=== PATIENT | female | born 1990 | race Caucasian/White ===

== ENCOUNTER 2018-11-30 18:53 | Emergency (ER) | payer SELFPAY ==
[~2018-11-30] VITALS: Ht 165.1 cm; Wt 80.0 kg
[2018-11-30 19:12] VITALS: Ht 165.1 cm; Wt 80.0 kg
[2018-11-30] MEDS ORDERED: LIDOCAINE/MYLANTA 40 ML BTL PO STA (19:39)
[2018-11-30] MEDS ORDERED: MAG-19 PO (21:51)
[2018-11-30] MEDS ORDERED: SIME80TA53 PO (21:51)
[2018-11-30 22:06] VITALS: BP 116/75; PULSE 76; RESP 18
--- NOTE | 2018-12-01 01:51 | ERD ---
ER Documentation Chief Complaint Chief Complaint upper abd pain x 3 days, states 9 weeks , denies vb HPI 28-year-old female presents for epigastric abdominal pain times 3 days. She is currently 9 weeks . She states that the pain is better with eating, worse with not eating. Pain is noted to be 5 out of 10, described as sharp and dull. She took Tylenol at home without relief. States that she hears a lot of bubbling in her stomach. She denies vaginal bleeding. She denies pain radiation. She denies fevers or chills. Denies chest pain or shortness of breath. No nausea or vomiting noted, no diarrhea. ROS All systems reviewed and are negative except as per history of present illness. Medications Home Meds Active Scripts Magaldrate/Simethicone* (Mylanta*) 355 Ml Susp, 30 ML PO QID PRN for GASTROINTESTINAL UPSET, #1 BOTTLE Prov:LUIMARCUS 11/30/18 Discontinued Scripts Simethicone (GAS RELIEF) 80 Mg Tab.chew, 80 MG PO QID PRN for prn, #30 TAB.CHEW Prov:MARCUS LUI DO 11/30/18 Allergies Allergies: Coded Allergies: No Known Drug Allergy (Verified Allergy, Unknown, 11/30/18) PMhx/Soc Medical and Surgical Hx: pt denies Medical Hx, pt denies Surgical Hx History of Surgery: No Anesthesia Reaction: No Hx Neurological Disorder: No Hx Respiratory Disorders: No Hx Cardiac Disorders: No Hx Psychiatric Problems: No Hx Miscellaneous Medical Probl: No Hx Alcohol Use: No Hx Substance Use: No Hx Tobacco Use: No Smoking Status: Never smoker Physical Exam Vitals Vital Signs Date Temp Pulse Resp B/P (MAP) Pulse Ox O2 O2 Flow FiO2 Time Delivery Rate 11/30/18 98.3 76 18 116/75 99 Room Air 22:06 (89) 11/30/18 98.5 82 18 120/68 99 19:12 (85) Physical Exam Const: No acute distress Neck: Full range of motion. No meningismus. Resp: Clear to auscultation bilaterally Cardio: Regular rate and rhythm, no murmurs Abd: Soft, non distended. Normal bowel sounds, mild epigastric tenderness to palpation, no Gallagher sign, no McBurney point tenderness, no rebound or guarding noted. Skin: No petechiae or rashes Back: No midline or flank tenderness Ext: No cyanosis, or edema Neur: Awake and alert Psych: Normal Mood and Affect Result Diagram: 11/30/18194411/30/181944 Results 24 hrs Laboratory Tests Test 11/30/18 19:45 11/30/18 19:50 White Blood Count 9.6 10^3/ul Red Blood Count 4.17 10^6/ul Hemoglobin 13.5 g/dl Hematocrit 38.7 % Mean Corpuscular Volume 92.8 fl Mean Corpuscular Hemoglobin 32.4 pg Mean Corpuscular Hemoglobin Concent 34.9 g/dl Red Cell Distribution Width 12.5 % Platelet Count 282 10^3/UL Mean Platelet Volume 10.6 fl Immature Granulocytes % 1.100 % Neutrophils % 60.9 % Lymphocytes % 28.9 % Monocytes % 8.3 % Eosinophils % 0.3 % Basophils % 0.5 % Nucleated Red Blood Cells % 0.0 /100WBC Immature Granulocytes # 0.110 10^3/ul Neutrophils # 5.8 10^3/ul Lymphocytes # 2.8 10^3/ul Monocytes # 0.8 10^3/ul Eosinophils # 0.0 10^3/ul Basophils # 0.1 10^3/ul Nucleated Red Blood Cells # 0.0 10^3/ul Sodium Level 138 mmol/L Potassium Level 4.3 mmol/L Chloride Level 102 mmol/L Carbon Dioxide Level 28 mmol/L Anion Gap 8 Blood Urea Nitrogen 8 mg/dl Creatinine 0.53 mg/dl Est Glomerular Filtrat Rate mL/min > 60 mL/min Glucose Level 90 mg/dl Calcium Level 9.3 mg/dl Total Bilirubin 0.0 mg/dl Direct Bilirubin 0.00 mg/dl Indirect Bilirubin 0.0 mg/dl Aspartate Amino Transf (AST/SGOT) 53 IU/L Alanine Aminotransferase (ALT/SGPT) 10 IU/L Alkaline Phosphatase 94 IU/L Total Protein 7.2 g/dl Albumin 4.0 g/dl Globulin 3.20 g/dl Albumin/Globulin Ratio 1.25 Lipase 90 U/L Urine Color STRAW Urine Clarity CLEAR Urine pH 6.0 Urine Specific [place] 1.013 Urine Ketones NEGATIVE mg/dL Urine Nitrite NEGATIVE mg/dL Urine Bilirubin NEGATIVE mg/dL Urine Urobilinogen NEGATIVE mg/dL Urine Leukocyte Esterase NEGATIVE Michael/ul Urine Hemoglobin NEGATIVE mg/dL Urine Glucose NEGATIVE mg/dL Urine Total Protein NEGATIVE mg/dl Current Medications Medications Dose Sig/Sanjay Start Time Status Last (Trade) Ordered Route PRN Stop Time Admin Dose Reason Admin 40 ml ONCE STAT 11/30/18 DC 11/30/18 Miscellaneous PO 19:39 19:59 Medication 11/30/18 (Gi Cocktail 19:42 (2)) Procedures/MDM Medical Decision Making: Differential diagnosis includes but not limited to acute gastritis, acute gastroenteritis, appendicitis, cholecystitis, pancreatitis. Patient appeared well on physical exam. Nontoxic appearing. Labs: CBC showed no anemia, no elevated WBC to suggest infection CMP showed no electrolyte abnormalities, there was normal kidney function, there is mildly elevated AST of 53, otherwise liver function is normal Lipase was normal UA was negative for infection Imaging: Gallbladder ultrasound was unremarkable Patient likely has acute gastritis ED course: Patient was given GI cocktail. Symptoms improved with treatment. Prescription(s): Patient given prescription for Mylanta. Patient advised to follow up with PCP in 1-2 days. Advised that if the patient continues to have abdominal pain that she may need a GI referral. Patient advised to return to ED for new or worsening symptoms. Patient stable on discharge from the ED. Disclaimer: Inadvertent spelling and grammatical errors are likely due to EHR/dictation software use and do not reflect on the overall quality of patient care. Also, please note that the electronic time recorded on this note does not necessarily reflect the actual time of the patient encounter. Departure Diagnosis: Primary Impression: Abdominal pain Condition: Fair Patient Instructions: Abdominal Pain, Abdominal Pain, Early Referrals: CLAIR WREN MD (PCP) Additional Instructions: Call your primary care doctor TOMORROW for an appointment during the next 1-2 days.See the doctor sooner or return here if your condition worsens before your appointment time. MARCUS LUI DO Dec 01, 2018 01:51
== END 2018-11-30 21:56 | disposition home or self-care (01) ==
LOC: FTE 18:53
DX: O26.891 Other specified pregnancy related conditions, first trimester (principal); R10.10 Upper abdominal pain, unspecified; Z3A.09 9 weeks gestation of pregnancy
CPT/HCPCS: 36415; 76705; 80053; 81003; 83690; 85025